=== PATIENT | female | born 1995 | race Two or more races ===

== ENCOUNTER 2017-11-28 18:56 | Inpatient (IN) | payer BC ==
[2017-11-28] MEDS ORDERED: Acetaminophen 500 MG TAB PO PRN (19:26)
[2017-11-28] MEDS ORDERED: Ondansetron HCl/PF 4 MG/2 ML Vial IVP PRN (19:26)
[2017-11-28] MEDS ORDERED: Promethazine HCl 25 MG/ML VIAL IM PRN (19:26)
[2017-11-28] MEDS ORDERED: Ibuprofen 800 MG TAB PO PRN (19:26)
[2017-11-28] MEDS ORDERED: Lidocaine 1% (PF) 30 ML VIAL SC PRN (19:26)
[2017-11-28] MEDS ORDERED: Acetaminophen/Codeine 30-300mg Tablet PO PRN ×2 (19:26)
[2017-11-28] MEDS ORDERED: Penicillin G Potassium 5 MILL.UNITS in Sodium Chloride 0.9% 100 ML IVPB SCH (19:30)
[2017-11-28] MEDS ORDERED: NS w/ Oxytocin 10 units 500 ML IV SCH (19:30)
[2017-11-28] MEDS ORDERED: Misoprostol 100 MCG TAB VAG SCH (19:30)
--- NOTE | 2017-11-28 19:31 | PDOC.LDHP ---
Labor and Delivery H&P Chief complaint: scheduled induction HPI: Pt is a 22yo G1 @ 37.3 weeks who presents for cervical ripening and IOL secondary to cholestasis of . Current gestational age (weeks): 37 Dating criteria: last menstrual period, first trimester ultrasound Grav: 1 Para: 0 Current complications: other (cholestasis) Abnormal US findings: No Current medications: pre-arabella vitamins, other (RONDA 300mg BID) Previous surgical history: none Allergies/Adverse Reactions: Allergies Allergy/AdvReac Type Severity Reaction Status Date / Time No Known Allergies Allergy Verified 11/28/17 19:50 Social history: none - Physical Exam Vital signs reviewed and normal: yes General: resting Heart: RRR Lungs: CTAB Abdomen: gravid Extremeties: no edema FHT: category 1 - Vaginal Exam cm dilated: 0 Station: -3 - OB Labs Blood type: B RH: positive Antibody Screen: negative HIV: negative RPR: negative HEPSAg: negative 1 hour GCT: positive 3 hour GTT: WNL GBS: positive Urine drug screen: not done Rubella: immune Additional Labs: seq1 and 2 - Assessment L&D Assessment: medically indicated induction (cholestasis of ) - Plan Plan: admit to L&D, cervical ripening, labor augmentation if indicated, GBS antibiotic prophylaxis, informed consent obtained, anesthesia consult for pain management -: A/P: TERM IOL @ 37+ weeks for cholestasis of . Plan for cervical ripening with cyotec, PCN for GBS prophylaxis with labor/cervical change.
[2017-11-28 20:14] VITALS: BMI 28.4
[2017-11-28] MEDS: Lactated Ringer's 1,000 ML IV SCH (20:40)
[2017-11-28 21:13] LABS: Hemoglobin 10.9 g/dL (12.0-16.0); Mean Corpuscular HGB CONC 32.3 g/dL (32.0-36.0); Mean Corpuscular Hemoglobin 28.6 pg (27.0-31.0); Mean Corpuscular Volume 88.5 fL (78.0-98.0); Mean Platelet Volume 9.5 fL (7.4-10.4); Platelet Count 256 thou/uL (130-400); RBC Distribution Width 14.9 % (11.5-14.5); Red Blood Cell (RBC) Count 3.81 mill/uL (4.20-5.40); White Blood Cell (WBC) Count 8.1 thou/uL (4.8-10.8)
[2017-11-28] MEDS ORDERED: diphenhydrAMINE 2% CREAM 28.4 GM TUBE TOP PRN (22:42)
[2017-11-29 00:22] LABS: HBSAg Index 0.16 S/CO (0-0.99); Hep B Surf Ag Non-Reactive S/CO (NonReactive)
[2017-11-29] MEDS: Butorphanol Tartrate 1 MG/ML VIAL SLOW IVP PRN ×2 (01:25→03:04)
[2017-11-29] MEDS: Penicillin G 2.5 MILL.units 2.5 MILL.UNITS in Premix Bag 1 BAG IVPB SCH ×4 (04:21→12:47)
[2017-11-29] MEDS: Lactated Ringer's 1,000 ML IV SCH ×2 (04:21→11:00)
[2017-11-29] MEDS: Misoprostol 100 MCG TAB VAG SCH ×2 (04:28→04:29)
[2017-11-29] MEDS: NS w/ Oxytocin 10 units 500 ML IV SCH ×2 (04:28→07:05)
[2017-11-29] MEDS ORDERED: Fentanyl 4 mcg/Bup 0.1% Cadd 0 ML ONE ×2 (05:16→12:55)
[2017-11-29] MEDS ORDERED: Promethazine HCl 25 MG/ML VIAL IM PRN (06:00)
[2017-11-29] MEDS ORDERED: Lactated Ringer's 500 ML IV PRN (06:00)
[2017-11-29] MEDS ORDERED: Acetaminophen 325 MG TAB PO PRN (06:00)
[2017-11-29] MEDS ORDERED: Naloxone HCl 0.4 mg/ml Vial IVP PRN ×2 (06:00)
[2017-11-29] MEDS ORDERED: diphenhydrAMINE 50 MG/ML VIAL IVP PRN (06:00)
[2017-11-29] MEDS ORDERED: fentaNYL Citrate/PF 400 MCG, Bupivacaine 0.5% 20 ML in Sodium Chloride 0.9% 72 ML EPIDURAL SCH (06:00)
[2017-11-29] MEDS ORDERED: Communication Order-Pharmacy FS SCH (06:00)
[2017-11-29] MEDS ORDERED: ePHEDrine/0.9% NaCl/PF SYRINGE 50 mg/10 ml SLOW IVP PRN (06:00)
[2017-11-29] MEDS ORDERED: Eucerin (Mineral Oil/Petrolatum,White) 30 gm Jar TOP PRN (06:00)
[2017-11-29] MEDS ORDERED: Ondansetron HCl/PF 4 MG/2 ML Vial IVP PRN ×2 (06:00→21:10)
--- NOTE | 2017-11-29 09:56 | PDOC.LDPN ---
Labor & Delivery Progress Note - Subjective Subjective: comfortable - Objective Vital signs reviewed and normal: yes General: resting Dilation: 4 Effacement: 75% Station: 0 FHT: category 1 [place] contractions every: 2 - Assessment (1) 37 weeks gestation of Code(s): Z3A.37 - 37 WEEKS GESTATION OF Current Visit: Yes Status : Acute (2) Cholestasis during in third trimester Code(s): O26.613 - LIVER AND BILIARY TRACT DISORD IN , THIRD TRIMESTER ; K83.1 - OBSTRUCTION OF BILE DUCT Current Visit: Yes Status: Acute Plan: continue plan of care -: A/P: Pt transitioning to active labor after cyotec for cervical ripening and SROM over night. Continue pitocin and PCN.
--- NOTE | 2017-11-29 12:33 | PDOC.LDPN ---
Labor & Delivery Progress Note - Subjective Subjective: comfortable - Objective Vital signs reviewed and normal: yes General: resting Dilation: 7 Effacement: 90% Station: 1+ FHT: category 1 [place] contractions every: 1-3 - Assessment (1) 37 weeks gestation of Code(s): Z3A.37 - 37 WEEKS GESTATION OF Current Visit: Yes Status : Acute (2) Cholestasis during in third trimester Code(s): O26.613 - LIVER AND BILIARY TRACT DISORD IN , THIRD TRIMESTER ; K83.1 - OBSTRUCTION OF BILE DUCT Current Visit: Yes Status: Acute Plan: continue plan of care
[2017-11-29] MEDS ORDERED: Fentanyl 4 mcg/Bup 0.1% Cadd 100 ML ONE (12:57)
[2017-11-29] MEDS: NS / Oxytocin 40 units/1000ml 1,000 ML IV PRN ×2 (17:20→18:39)
--- NOTE | 2017-11-29 17:41 | PDOC.OPDEL ---
OB Operative/Delivery Note Delivery Dr/Surgeon: Joshua Pre-Delivery Diagnosis: medically indicated induction (cholestasis) Procedure/Post Delivery Dx: spontaneous vaginal delivery Weeks gestation: 37 Anesthesia: epidural - Findings A Sex: female - 1 min: 9 - 5 min: 9 - Additional Findings/Plan Placenta delivered: spontaneous Repaired Obstetrical Laceration: vaginal (left vaginal side wall) Estimated blood loss: 300ml, QBL pending Post delivery plan: routine recovery
[2017-11-29] MEDS ORDERED: Bupivacaine 0.25% HCL 30 ML VIAL ONE (21:00)
[2017-11-29] MEDS ORDERED: Bisacodyl 10 MG SUPP PR PRN (21:10)
[2017-11-29] MEDS ORDERED: diphenhydrAMINE 25 MG CAP PO PRN (21:10)
[2017-11-29] MEDS ORDERED: NS / Oxytocin 40 units/1000ml 1,000 ML IV SCH (21:10)
[2017-11-29] MEDS ORDERED: Milk Of Magnesia 30 ML UDCUP PO PRN (21:10)
[2017-11-29] MEDS ORDERED: Acetaminophen/Codeine 30-300mg Tablet PO PRN (21:10)
[2017-11-29] MEDS ORDERED: Preparation H Ointment 28 GM TUBE PR PRN (21:10)
[2017-11-29] MEDS ORDERED: Lanolin Ointment 7 GM TUBE TOP PRN (21:10)
[2017-11-29] MEDS ORDERED: Benzocaine/Menthol 20-0.5% 60 ML CAN TOP PRN (21:10)
[2017-11-29] MEDS: Ibuprofen 800 MG TAB PO SCH (22:32)
[2017-11-30] MEDS: Ibuprofen 800 MG TAB PO SCH ×3 (06:00→21:28)
[2017-11-30 06:17] LABS: Hemoglobin 10.2 g/dL (12.0-16.0); Mean Corpuscular Hemoglobin 28.7 pg (27.0-31.0); Mean Corpuscular Volume 89.6 fL (78.0-98.0); Mean Platelet Volume 9.4 fL (7.4-10.4); Platelet Count 214 thou/uL (130-400); RBC Distribution Width 14.9 % (11.5-14.5); Red Blood Cell (RBC) Count 3.54 mill/uL (4.20-5.40); White Blood Cell (WBC) Count 12.4 thou/uL (4.8-10.8)
[2017-11-30] MEDS: Prenatal Vitamin 1 TAB PO SCH (08:49)
[2017-11-30] MEDS: Docusate Calcium (SURFAK) 240 MG CAP PO SCH ×2 (08:50→21:29)
--- NOTE | 2017-11-30 08:50 | PDOC.PP ---
Post Progress Note Post Day #: 1 Subjective: doing well, lochia WNL, sore, min pain PO intake tolerated: yes Flatus: yes Ambulation: yes Vital Signs (12 hours) Temp Pulse Resp BP Pulse Ox 11/30/17 04:40 98.3 F 74 18 104/54 L 11/30/17 00:55 98.2 F 75 18 103/52 L 11/29/17 21:30 98.6 F 89 20 105/56 L 97 Weight Weight 176 lb - Physical Examination General: NAD Respiratory: non-labored breathing Abdominal: no distention Fundus firm & at: below umb Extremities: negative homans (B) Neurological: no gross focal deficits Psychiatric: A&Ox3, normal affect Result Diagrams: 11/30/17 05:58 Additional Labs: Post Labs Blood Type B POSITIVE 11/28/17 20:40 Hep Bs Antigen Non-Reactive S/CO (NonReactive) 11/28/17 20:40 (1) 37 weeks gestation of Code(s): Z3A.37 - 37 WEEKS GESTATION OF Status: Acute (2) Cholestasis during in third trimester Code(s): O26.613 - LIVER AND BILIARY TRACT DISORD IN , THIRD TRIMESTER ; K83.1 - OBSTRUCTION OF BILE DUCT Status: Acute - Assessment/Plan PPD1 doing well, min itching, likely DC tomorrow.
[2017-11-30] MEDS ORDERED: Adacel (T-DAP) 0.5 ML VIAL IM ONE (09:00)
[2017-11-30] MEDS: Ferrous Sulfate 325 MG TAB PO SCH ×2 (10:07→17:08)
[2017-11-30] MEDS: Misoprostol 100 MCG TAB VAG SCH (10:12)
[2017-11-30] MEDS: Penicillin G 2.5 MILL.units 2.5 MILL.UNITS in Premix Bag 1 BAG IVPB SCH ×2 (10:12→10:13)
[2017-11-30] MEDS: Lactated Ringer's 1,000 ML IV SCH (10:13)
[2017-11-30] MEDS: NS w/ Oxytocin 10 units 500 ML IV SCH (10:13)
[2017-11-30] MEDS: Acetaminophen/Codeine 30-300mg Tablet PO PRN ×2 (12:09→17:48)
[2017-12-01] MEDS: Acetaminophen/Codeine 30-300mg Tablet PO PRN ×2 (01:34→11:18)
[2017-12-01] MEDS: Ibuprofen 800 MG TAB PO SCH (04:58)
[2017-12-01] MEDS: Ferrous Sulfate 325 MG TAB PO SCH (07:46)
[2017-12-01 08:00] VITALS: BP 104/64; TEMP 98.7
--- NOTE | 2017-12-01 08:01 | PDOC.PP ---
Post Progress Note Post Day #: 2 PO intake tolerated: yes Flatus: yes Ambulation: yes Vital Signs (12 hours) Temp Pulse Resp BP Pulse Ox 12/01/17 08:00 98.7 F 66 20 104/64 98 11/30/17 21:30 98.0 F 74 20 106/68 Weight Weight 176 lb - Physical Examination General: NAD Cardiovascular: RRR Respiratory: non-labored breathing Abdominal: no distention, appropriately TTP Fundus firm & at: umb-2 Extremities: negative homans (B) Skin: no rash Neurological: no gross focal deficits Psychiatric: normal affect Result Diagrams: 11/30/17 05:58 Additional Labs: Post Labs Blood Type B POSITIVE 11/28/17 20:40 Hep Bs Antigen Non-Reactive S/CO (NonReactive) 11/28/17 20:40 - Assessment/Plan PPD2 s/p TSVD at 37w 2/2 cholestasis VSSAF Doing well lochia < menses Mild asx iron def anemia, cont PNV on DC Rh pos RImm DC home FU 6w
[2017-12-01] MEDS: Docusate Calcium (SURFAK) 240 MG CAP PO SCH (09:11)
[2017-12-01] MEDS: Prenatal Vitamin 1 TAB PO SCH (09:11)
== END 2017-12-01 12:40 | disposition home or self-care (01) | DRG 805 ==
LOC: L&D 18:56 → 3SW 11-29 21:14
PROVIDERS: ADMIT Obstetrics & Gynecology; ATTEND Obstetrics & Gynecology
PROC: 10E0XZZ Delivery of Products of Conception, External Approach (ICD-10-PCS; principal; 2017-11-28)
PROC: 3E0P7VZ Introduction of Hormone into Female Reproductive, Via Natural or Artificial Opening (ICD-10-PCS; 2017-11-28)
PROC: 0HQ9XZZ Repair Perineum Skin, External Approach (ICD-10-PCS; 2017-11-28)
PROC: 4A0HXCZ Measurement of Products of Conception, Cardiac Rate, External Approach (ICD-10-PCS; 2017-11-28)
DX: O26.62 Liver and biliary tract disorders in childbirth (principal); K83.1 Obstruction of bile duct; Z37.0 Single live birth; O99.824 Streptococcus B carrier state complicating childbirth; O70.0 First degree perineal laceration during delivery; Z3A.37 37 weeks gestation of pregnancy
CPT/HCPCS: 36415; 51702; 84450; 85027; 86850; 86900; 86901; 87340; J0595; J2001; J2540; J7050; S0020